=== PATIENT | female | born 1995 | race Two or more races ===

== ENCOUNTER 2020-10-29 18:18 | Emergency (ER) | payer OTHER ==
[~2020-10-29] VITALS: Ht 152.4 cm; Wt 95.3 kg
== END 2020-10-29 22:35 | disposition home or self-care (01) ==
LOC: ER 18:18
DX: N93.9 Abnormal uterine and vaginal bleeding, unspecified (principal)

== ENCOUNTER 2021-05-12 18:01 | Emergency (ER) | payer OTHER ==
[~2021-05-12] VITALS: Ht 152.4 cm; Wt 93.4 kg
[2021-05-12] MEDS ORDERED: HEMATRON AF PO (23:14)
== END 2021-05-12 23:27 ==
LOC: ER 18:01
DX: D50.9 Iron deficiency anemia, unspecified (principal); R59.0 Localized enlarged lymph nodes